=== PATIENT | male | born 1950 | race Caucasian/White ===

== ENCOUNTER → 2024-08-25 | Outpatient (CLI) | payer MEDICARE, BC, SELFPAY ==
--- NOTE | 2024-08-25 09:47 | XR_ITS ---
Examination: Knee, right , 3 views Technique: Knee AP, lateral, oblique 3 views Date and time of exam: August 25, 2024 at 10:00 AM INDICATIONS: Right knee pain 5 years getting worse FINDINGS: Moderate to advanced tricompartment osteoarthritis, most severe medial joint space No fracture Small knee effusion IMPRESSION: Moderate to advanced tricompartment osteophytes arthritis
[2024-08-25 10:38] LABS: Basophils # (Auto) 0.1 Thou/mm3 (0.0-0.2); Basophils % (Auto) 1 % (0-2.5); Eosinophils # (Auto) 0.7 Thou/mm3 (0.0-0.5); Eosinophils % (Auto) 12 % (0-10); Hematocrit 46.7 % (41.0-53.0); Immature Granulocytes % (Auto) 0 % (0-0); Immature Granulocytes Auto 0.02 Thou/mm3 (0.00-0.00); Lymphocytes # (Auto) 1.2 Thou/mm3 (1.0-4.8); Lymphocytes % (Auto) 19 % (10-50); Mean Corpuscular HGB Conc 34.3 g/dl (31.0-37.0); Mean Corpuscular Hemoglobin 32.3 pg (25.0-35.0); Mean Corpuscular Volume 94 fL (80-100); Monocytes # (Auto) 0.5 Thou/mm3 (0.0-0.8); Monocytes % (Auto) 7 % (0-12); Neutrophils # (Auto) 3.9 Thou/mm3 (1.8-7.7); Neutrophils % (Auto) 60 % (37-80); Nucleated Red Blood Cell % 0 /100 WBC (0); Platelet Count 184 Thou/mm3 (140-440); RDW Standard Deviation 43.9 fL (35.1-43.9); Red Blood Count 4.95 Miln/mm3 (4.50-5.90); White Blood Count 6.4 Thou/mm3 (3.8-10.6)
[2024-08-25 10:50] LABS: Glucose Estimated Average 148 mg/dL (80-131); Hemoglobin A1C 6.8 % Hgb (4.8-6.0)
[2024-08-25 10:58] LABS: Prostate Specific Antigen 3.08 ng/mL (0-4.00)
[2024-08-25 11:05] LABS: Vitamin D 25 Hydroxy Total 55.4 ng/mL (7.3-40.2)
[2024-08-25 11:09] LABS: Alanine Aminotransferase 9 U/L (10-49); Albumin, Serum 4.5 gm/dL (3.4-4.8); Alkaline Phosphatase 85 U/L (46-116); Anion Gap 5 (7-16); Aspartate Amino Transferase 11 U/L (0-34); BUN/Creatinine Ratio 21 Ratio (12-20); Bilirubin,Total 0.9 mg/dL (0.3-1.2); Blood Urea Nitrogen 29 mg/dL (9-23); Calcium 9.5 mg/dL (8.3-10.6); Calcium (Corrected) 9.5 mg/dL (8.5-10.1); Carbon Dioxide 29.2 mMol/L (20.0-31.0); Cardiac Risk Estimate 4.5 RATIO (4.0-6.7); Chloride 108 mMol/L (98-107); Cholesterol 122 mg/dL (132-200); Creatinine (Component) 1.4 mg/dL (0.6-1.3); Free T4 (Free Thyroxine) 1.33 ng/dL (0.89-1.76); Globulin 2.2 gm/dL (2.3-3.5); Glucose 126 mg/dL (74-106); HDL Cholesterol 27 mg/dL (40-60); LDL Cholesterol,Calculated 65 mg/dL (0-130); Osmolality,Calculated 290 (275-295); Sodium 142 mMol/L (136-145); Thyroid Stimulating Hormone 1.42 uIU/mL (0.55-4.78); Total Protein 6.7 gm/dL (5.7-8.2); Triglycerides 148 mg/dL (30-150); eGFR 52 See Note
== END | disposition home or self-care (01) ==
LOC: COPL 09:33
PROVIDERS: PCP Internal Medicine; Referring Provider Internal Medicine; Visit Provider Internal Medicine
DX: E03.9 Hypothyroidism, unspecified (principal); E11.9 Type 2 diabetes mellitus without complications; E55.9 Vitamin D deficiency, unspecified; I11.0 Hypertensive heart disease with heart failure; M25.561 Pain in right knee; N40.1 Benign prostatic hyperplasia with lower urinary tract symptoms
CPT/HCPCS: 36415; 73562; 80053; 80061; 82306; 83036; 84153; 84439; 84443; 85025

== ENCOUNTER 2024-10-23 09:55 | Outpatient (AMB) | payer MEDICARE, BC, SELFPAY ==
[2024-10-23 10:03] VITALS: BP 135/94; PULSE 74; RESP 18; TEMP 36.2; O2SAT 95; BMI 35.7
--- NOTE | 2024-10-23 10:03 | PD.GSCLVISIT ---
Vital Signs - [facility] 10/23/24 10:03 Height 1.88 m Height Method Stated Weight 126.24 kg Weight Measurement Method Standing Scale BMI 35.7 BP 135/94 H Blood Pressure Source Automatic Cuff Blood Pressure Location Left Upper Arm Position Sitting Respiration 18 Pulse 74 Pulse Source Monitor Temp 97.2 F Temp Source Temporal Artery Scan Pulse Oximetry (%) 95 Oxygen Delivery Method Room Air Med/Allergies Allergies & Medications Allergies ketorolac (From Toradol) Allergy (Verified 10/23/24 10:03) Rash Medication Reconciliation atorvastatin 20 mg tablet 20 mg PO QPM #30 tabs 09/17/21 [Rx Confirmed 10/23/24] lisinopril 10 mg tablet 10 mg PO QDAY #30 tabs 09/17/21 [Rx Confirmed 10/23/24] apixaban 5 mg tablet (Eliquis) 5 mg PO BID 10/23/24 [History Confirmed 10/23/24] chlorthalidone 25 mg tablet 25 mg PO Q OTHER DAY 10/23/24 [History Confirmed 10/23/24] linaclotide 145 mcg capsule (Linzess) 145 mcg PO QDAY #30 caps 10/23/24 [Rx] pantoprazole 40 mg tablet,delayed release 40 mg PO QDAY 10/23/24 [History Confirmed 10/23/24] spironolactone 25 mg tablet 25 mg PO QDAY 10/23/24 [History Confirmed 10/23/24] MA Intake Visit Data Collection New Patient or Established: New Patient (never been to [facility]) Reason for Visit:: CONSTIPATED/HEMORRHOID Pain Present Currently: No PCP or OBGYN visit in last 3 months: Yes Smoking Status Smoking Status: Former smoker Years smoked: 60 (SMOKES ADAM) Immunization / Flu Flu Vaccine in the Last 12 Months: Yes Flu Vaccine Exclusion Criteria: Already Received Past Medical History Past Medical History NEUROLOGIC: Negative Neurological Disorders or Seizures CARDIAC: Positive Cardiac Arrhythmia, Aneurysm (aortic aneurysm) and Hypertension; Negative Congestive Heart Failure RESPIRATORY: Positive Chronic Obstructive Pulmonary Disease (COPD) GASTROINTESTINAL: Positive Gastrointestinal Disorders GENITOURINARY: Negative Renal Disease MUSCULOSKELETAL: Positive Arthritis ENDOCRINE: Negative Diabetes Mellitus Type 1 or Diabetes Mellitus Type 2 OTHER HISTORY: Positive Chicken Pox; Negative Blood Transfusions or Anesthesia Reactions Surgical History SURGICAL: Negative Joint Replacement Social History SMOKING STATUS: Smoking status: Former smoker SECOND HAND EXPOSURE: second hand exposure: No ALCOHOL: Alcohol Intake: Former HOUSING: Housing: House LIVES WITH: Lives With: Spouse HPI HPI Narrative 74M with HTN, atrial fibrillation on eliquis, HLD and renal disease who self-referred for constipation. 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 Pt reports he drinks prune juice daily and uses over the counter medications such as Mag citrate, and has a BM almost daily but feels the stool is dry and he does have to strain. Pt notes pain with defecation but denies any bleeding or other signs of hemorrhoids. He has not yet tried any prescription remedy for constipation and he has been advised not to drink too much water daily. Pt has not yet tried sitz baths for the pain but overall states the pain is manageable ROS Review of Systems Systems Reviewed: All systems reviewed, normal except as documented Objective/Exam General General Appearance: alert, cooperative and well groomed Resp Respiratory exam: Absent respiratory distress Assessment & Plan Diagnosis / Problem List (1) Constipation: Assessment & Plan: 74M with HTN, afib on eliquis and HLD, who is up to date on his colonoscopy (next due in 2026 due to TVA seen in 2023) presenting with chronic constipation. As pt is unable to drink copious water due to his comorbid conditions I offered linzess as a prescription option, however pt understands that cost may be prohibitive. As he describes symptoms of an anal fissure I also offered to examine and prescribe a compound cream but pt prefers to hold off as he states the pain is manageable Plan: Will follow up in 2 mos Advanced Care Planning Advance care planning discussed with:: patient Office Procedures GNS Level of Care Nursing/Assessment Patient Status: Initial/New Patient Nursing Assessment/Reassesment: Medication Reconciliation, Update PMH in EMR and Vital Signs Coordination of Care: Complex Care and Chronic Disease 1-5, Consent,records obtained, informed consent, Education Simp Pt/Fam, 1 Ins Authorization, Results/Orders obtained and Staff clarify orders New Patient Charge New Patient Point Assignment: 1104 New Patient Point Charge: CUSTOMER ASSISTANCE ASSOCIATE Level 3 (0533-2510) Patient Portal Questionaires Social History Living Situation History Housing: House Tobacco History Smoking Status: Former smoker Second Hand Smoke Exposure: No Alcohol History Alcohol Intake: Former Review of Systems Report any current symptoms Only answer those that you have currently: Past Medical History Past Medical History Have you ever been diagnosed with any of the following: Neurological Problems Seizures: No Cardiology Problems Cardiac Arrhythmia: Yes Aneurysm: Yes (aortic aneurysm) Congestive Heart Failure: No Hypertension: Yes Respiratory Problems Chronic Obstructive Pulmonary Disease (COPD): Yes Genital/Urinary Problems Renal Disease: No Musculoskeletal Problems Arthritis: Yes Endocrine Problems Diabetes Mellitus Type 1: No Diabetes Mellitus Type 2: No Other Problems Blood Transfusions: No Anesthesia Reactions: No Chicken Pox: Yes
== END 2024-10-23 10:21 | disposition home or self-care (01) ==
LOC: HODSRG 09:55
PROVIDERS: PCP Internal Medicine; Referring Provider Internal Medicine; Supervising Provider Surgery; Visit Provider Surgery
DX: K59.00 Constipation, unspecified (principal); I10 Essential (primary) hypertension; J44.9 Chronic obstructive pulmonary disease, unspecified
CPT/HCPCS: 99203; G0463

== ENCOUNTER 2024-10-24 08:41 | Outpatient (AMB) | payer MEDICARE, BC, SELFPAY ==
[2024-10-24 09:14] VITALS: BP 129/90; PULSE 78; RESP 19; TEMP 36.8; O2SAT 93; BMI 35.6
--- NOTE | 2024-10-24 09:14 | PD.ORTHCLVIS ---
Vital signs 10/24/24 09:14 Height 1.88 m Height Method Stated Weight 126.212 kg Weight Measurement Method Standing Scale BMI 35.6 BP 129/90 H Blood Pressure Source Automatic Cuff Blood Pressure Location Left Upper Arm Position Sitting Respiration 19 Pulse 78 Pulse Source Monitor Temp 98.2 F Temp Source Temporal Artery Scan Pulse Oximetry (%) 93 L Oxygen Delivery Method Room Air Med/Allergies Allergies & Medications Allergies ketorolac (From Toradol) Allergy (Verified 10/24/24 09:15) Rash Medication Reconciliation atorvastatin 20 mg tablet 20 mg PO QPM #30 tabs 09/17/21 [Rx Confirmed 10/24/24] lisinopril 10 mg tablet 10 mg PO QDAY #30 tabs 09/17/21 [Rx Confirmed 10/24/24] apixaban 5 mg tablet (Eliquis) 5 mg PO BID 10/23/24 [History Confirmed 10/24/24] chlorthalidone 25 mg tablet 25 mg PO Q OTHER DAY 10/23/24 [History Confirmed 10/24/24] linaclotide 145 mcg capsule (Linzess) 145 mcg PO QDAY #30 caps 10/23/24 [Rx Confirmed 10/24/24] pantoprazole 40 mg tablet,delayed release 40 mg PO QDAY 10/23/24 [History Confirmed 10/24/24] spironolactone 25 mg tablet 25 mg PO QDAY 10/23/24 [History Confirmed 10/24/24] Exam Exam Patient is in no acute distress and is cooperative with the examination today. Breathing is nonlabored. In no respiratory distress. Bilateral extremities were evaluated and demonstrates sensation intact to light touch. Palpable pedal pulses are present. No significant edema is present. Bilateral hips were examined. The patient has no pain with log roll of the hips. Internal rotation to 30 degrees and external rotation to 30 degrees is painless. Negative FADIR. The left knee was examined. The left knee is in varus alignment. Range of motion from 0-115 degrees. Knee is stable to varus and valgus as well as AP translation with <5mm. Patient has a negative McMurrays. There is no pain with patellofemoral compression and no crepitus noted. The knee is tender to palpation medially. The right knee was also examined. The right knee is in varus alignment. Range of motion from 0-120 degrees. Knee is stable to varus and valgus as well as AP translation with <5mm. Patient has a negative McMurrays. There is no pain with patellofemoral compression and no crepitus noted. The knee is tender to palpation medially. Nonweightbearing films of the right knee demonstrate significant obliteration of the medial and lateral joint space Assessment and Plan Problem List (1) Degenerative arthritis of knee, bilateral: Status: Acute Plan: Patient is a pleasant 74-year-old male with bilateral knee arthritis of significant severity. I would like to get weightbearing x-rays. We likely do injections and conservative treatment. We will likely talk about surgery and if he can get cleared medically but he has a lot of fun requiring medical issues right now Advanced Care Planning Discussion Advance care planning discussed with:: patient Office Procedures GNS Level of Care Nursing/Assessment Patient Status: Initial/New Patient Nursing Assessment/Reassesment: Medication Reconciliation, Update PMH in EMR and Vital Signs Coordination of Care: Complex Care and Chronic Disease 1-5, Education Complex Pt/Fam, Consent,records obtained, informed consent, 1 Ins Authorization, Lab and Imaging orders, Results/Orders obtained and Staff clarify orders New Patient Charge New Patient Point Assignment: 1124 New Patient Point Charge: REGISTERED VETERINARY TECHNICIAN Level 4 (8159-9122) Established Patient Charge Established Patient Point Charge: EP Level 3 (80-115) MA Intake Visit Data Collection New Patient or Established: Established Patient (seen at [facility] within 3 years) Reason for Visit:: RIGHT KNEE PAIN Seen by Clinical Staff ONLY (RN/MA): No 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: No PCP or OBGYN visit in last 3 months: Yes Hx Now: No Do You Feel Safe at Home: Yes Authorities Contacted: N/A Questionairres Past Medical History Past Medical History Have you ever been diagnosed with any of the following: Neurological Problems Seizures: No Cardiology Problems Cardiac Arrhythmia: Yes Aneurysm: Yes (aortic aneurysm) Congestive Heart Failure: No Hypertension: Yes Respiratory Problems Chronic Obstructive Pulmonary Disease (COPD): Yes 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 ) Smoking Exposure: No Tobacco Use: No Genital/Urinary Problems Renal Disease: No Musculoskeletal Problems Arthritis: Yes Endocrine Problems Diabetes Mellitus Type 1: No Diabetes Mellitus Type 2: No Other Problems Blood Transfusions: No Anesthesia Reactions: No Chicken Pox: Yes Subjective Visit Visit for: new patient and knee (RIGHT KNEE ) Immunization / Flu Flu Vaccine in the Last 12 Months: Yes Flu Vaccine Exclusion Criteria: Already Received History of Present Illness Chief complaint: Bilateral knee pain Zackery is a pleasant 74-year-old male with right greater than left knee pain. This been ongoing for many years. He reports that he has a lot of medical issues going on right now and that he has an acute kidney failure. 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 He is on 5 mg of Eliquis. He reports the right knee pain has been bothering him quite significantly. He has not had any conservative treatment Personal History Red flag PMH: none Pain Pain level (0-10): 0 (PATIENT STATES NO PAIN, IT'S MORE NUMBNESS ) Pain duration: 3 YEARS AGO, DUE TO A FALL Pain location: anterior Pain quality: tingling and other (specify) (SWELLING) Pain timing: increases with activity Associated signs & symptoms: numbness Ambulatory data Ambulatory device: none Walking distance (minutes): 1 Treatments Number of previous injections: 0 Number of Physical Therapy sessions: 0 Improvement with NSAIDS: n/a Review of Systems Review of Systems: All systems negative unless otherwise noted in HPI.
--- NOTE | 2024-10-24 09:27 | XR_ITS ---
Examination: Bilateral knees 2 views Right lateral knee left lateral knee 2 views Bilateral axial knees single view TECHNIQUE: Bilateral AP knees standing single view, bilateral PA knees standing single view flexion Standing right lateral knee left lateral knee 2 views Bilateral axial knees single view total 5 views Date and time: October 24, 2024 0942 hours INDICATIONS: Bilateral knee pain several months. FINDINGS: Severe narrowing medial joint space right knee, [id number] Moderate to advanced osteoarthritis right patellofemoral joint Advanced narrowing medial joint space left knee Moderate to advanced osteoarthritis left patellofemoral joint No fractures No patellar dislocation IMPRESSION: Severe narrowing medial joint space right knee Advanced narrowing medial joint space left knee Bilateral moderate to advanced osteoarthritis patellofemoral joints
== END 2024-10-24 09:36 | disposition home or self-care (01) ==
LOC: HODSRG 08:41
PROVIDERS: PCP Internal Medicine; Referring Provider Internal Medicine; Supervising Provider Orthopaedic Surgery Adult Reconstructive Orthopaedic Surgery; Visit Provider Orthopaedic Surgery Adult Reconstructive Orthopaedic Surgery
DX: M17.0 Bilateral primary osteoarthritis of knee (principal); M25.562 Pain in left knee; M25.561 Pain in right knee; I48.91 Unspecified atrial fibrillation; I10 Essential (primary) hypertension; J44.9 Chronic obstructive pulmonary disease, unspecified
CPT/HCPCS: 73564; 99204; 99213; G0463

== ENCOUNTER 2024-11-14 07:50 | Outpatient (AMB) | payer MEDICARE, BC, SELFPAY ==
--- NOTE | 2024-11-14 07:57 | ORTHONT_ITS ---
Vital signs 11/14/24 07:58 Height 1.88 m Height Method Stated Weight 126.637 kg Weight Measurement Method Standing Scale BMI 35.8 BP 162/124 H Blood Pressure Source Automatic Cuff Blood Pressure Location Right Upper Arm Position Sitting Respiration 19 Pulse 80 Pulse Source Monitor Temp 96.9 F Temp Source Temporal Artery Scan Oxygen Delivery Method Room Air Med/Allergies Allergies & Medications Allergies ketorolac (From Toradol) Allergy (Verified 11/14/24 08:02) Rash Medication Reconciliation atorvastatin 20 mg tablet 20 mg PO QPM #30 tabs 09/17/21 [Rx Confirmed 11/14/24] lisinopril 10 mg tablet 10 mg PO QDAY #30 tabs 09/17/21 [Rx Confirmed 11/14/24] apixaban 5 mg tablet (Eliquis) 5 mg PO BID 10/23/24 [History Confirmed 11/14/24] chlorthalidone 25 mg tablet 25 mg PO Q OTHER DAY 10/23/24 [History Confirmed 11/14/24] linaclotide 145 mcg capsule (Linzess) 145 mcg PO QDAY #30 caps 10/23/24 [Rx Confirmed 11/14/24] pantoprazole 40 mg tablet,delayed release 40 mg PO QDAY 10/23/24 [History Confirmed 11/14/24] spironolactone 25 mg tablet 25 mg PO QDAY 10/23/24 [History Confirmed 11/14/24] Exam Exam Patient is in no acute distress and is cooperative with the examination today. Breathing is nonlabored. In no respiratory distress. Bilateral extremities were evaluated and demonstrates sensation intact to light touch. Palpable pedal pulses are present. No significant edema is present. Bilateral hips were examined. The patient has no pain with log roll of the hips. Internal rotation to 30 degrees and external rotation to 30 degrees is painless. Negative FADIR. The left knee was examined. The left knee is in varus alignment. Range of motion from 0-115 degrees. Knee is stable to varus and valgus as well as AP translation with <5mm. Patient has a negative McMurrays. There is no pain with patellofemoral compression and no crepitus noted. The knee is tender to palpation medially. The right knee was also examined. The right knee is in varus alignment. Range of motion from 0-120 degrees. Knee is stable to varus and valgus as well as AP translation with <5mm. Patient has a negative McMurrays. There is no pain with patellofemoral compression and no crepitus noted. The knee is tender to palpation medially. Nonweightbearing films of the right knee demonstrate significant obliteration of the medial and lateral joint space Assessment and Plan Problem List (1) Degenerative arthritis of knee, bilateral: Status: Acute Plan: Patient is a pleasant 74-year-old male with bilateral knee arthritis of significant severity. We likely do injections and conservative treatment. We will likely talk about surgery and if he can get cleared medically Recommend knee cortisone injections as patient would like to proceed with conservative treatment at this time. The risks and benefits of the procedure were reviewed with the patient and patient gave verbal consent to continue with the procedure. Procedure: performed by Dr. Iqbal Using sterile technique the Bilateral knees were thoroughly prepped with alcohol, and approximately 1 cc of Kenalog 40 mg/mL and 4 cc of 1% lidocaine was injected into each knee without resistance into the medial tibial femoral joint space. The patient tolerated the procedure. Advanced Care Planning Discussion Advance care planning discussed with:: patient Office Procedures GNS Level of Care Nursing/Assessment Patient Status: Established Patient Nursing Assessment/Reassesment: Medication Reconciliation, Update PMH in EMR and Vital Signs Coordination of Care: Complex Care and Chronic Disease 1-5, Education Complex Pt/Fam, Consent,records obtained, informed consent, Results/Orders obtained and Staff clarify orders Established Patient Charge Established Patient Point Assignment: 95 Established Patient Point Charge: EP Level 3 (80-115) Surgical Proc/IM SQ injection Major Surgical Procedure: Yes (bilateral knee) Medication Given Medication Given Medication Given: Yes Documented Dose Given: 8 Route: Infiitration Medication Given Medication Given Medication Given: Yes Documented Dose Given: 2 Route: Infiitration Office Meds Xylocaine 10 mg/mL (1 %) injection solution Performing Provider: Joni Iqbal MD Performing Location: [facility] Administered by: Joni Iqbal MD on 11/14/24 08:33 Dose Route Admin Location Dispensed Lot Number Expiration Date [facility] Sql [employer] 40 mL Infiltration 40 mL [id number] FRESEN S KABI triamcinolone acetonide 40 mg/mL suspension for injection Performing Provider: Joni Iqbal MD Performing Location: [facility] Administered by: Joni Iqbal MD on 11/14/24 08:33 Dose Route Admin Location Dispensed Lot Number Expiration Date [facility] [employer] 80 mg intra-articular 2 mL [id number] ALFREDO PEÑA MA Intake Visit Data Collection New Patient or Established: Established Patient (seen at [facility] within 3 years) Reason for Visit:: F/U XRAYS Seen by Clinical Staff ONLY (RN/MA): No Verbal consent obtained for Telemed visit?: No Construction Area Manager Required: No PCP or OBGYN visit in last 3 months: Yes Hx Now: No Do You Feel Safe at Home: Yes Authorities Contacted: N/A Questionairres Past Medical History Past Medical History Have you ever been diagnosed with any of the following: Neurological Problems Seizures: No Cardiology Problems Cardiac Arrhythmia: Yes Aneurysm: Yes (aortic aneurysm) Congestive Heart Failure: No Hypertension: Yes Respiratory Problems Chronic Obstructive Pulmonary Disease (COPD): Yes 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 ) Smoking Exposure: No Tobacco Use: No Stomache/Intestinal Problems Obesity: Yes Genital/Urinary Problems Renal Disease: No Musculoskeletal Problems Arthritis: Yes Endocrine Problems Diabetes Mellitus Type 1: No Diabetes Mellitus Type 2: No Other Problems Blood Transfusions: No Anesthesia Reactions: No Chicken Pox: Yes Subjective Visit Visit for: follow up visit, knee and x-rays Immunization / Flu Flu Vaccine in the Last 12 Months: No Flu Vaccine Exclusion Criteria: No Exclusion Criteria History of Present Illness Chief complaint: F/U ON XRAY Zackery is a pleasant 74-year-old male with right greater than left knee pain. This been ongoing for many years. He reports that he has a lot of medical issues going on right now and that he has an acute kidney failure. 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 He is on 5 mg of Eliquis. He reports the right knee pain has been bothering him quite significantly. He has not had any conservative treatment Personal History Occupation: RETIRED Red flag PMH: BMI BMI Counceling provided: Yes Pain Pain level (0-10): 0 Pain duration: ALL DAY Pain location: anterior Pain quality: tingling and other (specify) (SWELLING) Pain timing: increases with activity Associated signs & symptoms: numbness Ambulatory data Ambulatory device: none Walking distance (minutes): 1 Treatments Number of previous injections: 0 Improvement with previous injections: No Number of Physical Therapy sessions: 0 Improvement with PT: No Improvement with NSAIDS: no Review of Systems Review of Systems: All systems negative unless otherwise noted in HPI.
[2024-11-14 07:58] VITALS: BP 162/124; PULSE 80; RESP 19; TEMP 36.1; BMI 35.8
== END 2024-11-14 08:35 | disposition home or self-care (01) ==
LOC: HODSRG 07:50
PROVIDERS: PCP Internal Medicine; Referring Provider Internal Medicine; Supervising Provider Orthopaedic Surgery Adult Reconstructive Orthopaedic Surgery; Visit Provider Orthopaedic Surgery Adult Reconstructive Orthopaedic Surgery
DX: M17.0 Bilateral primary osteoarthritis of knee (principal); M25.562 Pain in left knee; M25.561 Pain in right knee; I48.91 Unspecified atrial fibrillation; N17.9 Acute kidney failure, unspecified; I10 Essential (primary) hypertension; J44.9 Chronic obstructive pulmonary disease, unspecified
CPT/HCPCS: 20610; 99213; J3301; J3490; G0463

== ENCOUNTER → 2024-11-15 | Outpatient (CLI) | payer MEDICARE, BC, SELFPAY ==
[2024-11-15 09:33] LABS: Albumin, Serum 4.2 gm/dL (3.4-4.8); Anion Gap 9 (7-16); BUN/Creatinine Ratio 10 Ratio (12-20); Blood Urea Nitrogen 13 mg/dL (9-23); Calcium 9.2 mg/dL (8.3-10.6); Calcium (Corrected) 9.2 mg/dL (8.5-10.1); Carbon Dioxide 28.5 mMol/L (20.0-31.0); Chloride 106 mMol/L (98-107); Creatinine (Component) 1.3 mg/dL (0.6-1.3); Glucose 130 mg/dL (74-106); Osmolality,Calculated 287 (275-295); Phosphorous 2.8 mg/dL (2.4-5.1); Potassium 4.1 mMol/L (3.4-5.1); Sodium 143 mMol/L (136-145); eGFR 57 See Note
== END | disposition home or self-care (01) ==
LOC: COPL 08:07
PROVIDERS: PCP Internal Medicine; Referring Provider Internal Medicine Cardiovascular Disease; Visit Provider Internal Medicine Cardiovascular Disease
DX: I48.21 Permanent atrial fibrillation (principal)
CPT/HCPCS: 36415; 80069

== ENCOUNTER 2025-02-20 07:59 | Outpatient (AMB) | payer MEDICARE, BC, SELFPAY ==
--- NOTE | 2025-02-20 08:09 | ORTHONT_ITS ---
Vital signs 02/20/25 08:10 Height 1.88 m Height Method Measured Weight 126.609 kg Weight Measurement Method Standing Scale BMI 35.8 BP 173/112 H Blood Pressure Source Automatic Cuff Blood Pressure Location Left Upper Arm Position Sitting Respiration 18 Pulse 64 Pulse Source Monitor Temp 97.2 F Temp Source Temporal Artery Scan Pulse Oximetry (%) 94 L Oxygen Delivery Method Room Air Med/Allergies Allergies & Medications Allergies ketorolac (From Toradol) Allergy (Verified 02/20/25 08:11) Rash Medication Reconciliation atorvastatin 20 mg tablet 20 mg PO QPM #30 tabs 09/17/21 [Rx Confirmed 02/20/25] lisinopril 10 mg tablet 10 mg PO QDAY #30 tabs 09/17/21 [Rx Confirmed 02/20/25] apixaban 5 mg tablet (Eliquis) 5 mg PO BID 10/23/24 [History Confirmed 02/20/25] chlorthalidone 25 mg tablet 25 mg PO Q OTHER DAY 10/23/24 [History Confirmed 02/20/25] linaclotide 145 mcg capsule (Linzess) 145 mcg PO QDAY #30 caps 10/23/24 [Rx Confirmed 02/20/25] pantoprazole 40 mg tablet,delayed release 40 mg PO QDAY 10/23/24 [History Confirmed 02/20/25] spironolactone 25 mg tablet 25 mg PO QDAY 10/23/24 [History Confirmed 02/20/25] Exam Exam Patient is in no acute distress and is cooperative with the examination today. Breathing is nonlabored. In no respiratory distress. Bilateral extremities were evaluated and demonstrates sensation intact to light touch. Palpable pedal pulses are present. No significant edema is present. Bilateral hips were examined. The patient has no pain with log roll of the hips. Internal rotation to 30 degrees and external rotation to 30 degrees is painless. Negative FADIR. The left knee was examined. The left knee is in varus alignment. Range of motion from 0-115 degrees. Knee is stable to varus and valgus as well as AP translation with <5mm. Patient has a negative McMurrays. There is no pain with patellofemoral compression and no crepitus noted. The knee is tender to palpation medially. The right knee was also examined. The right knee is in varus alignment. Range of motion from 0-120 degrees. Knee is stable to varus and valgus as well as AP translation with <5mm. Patient has a negative McMurrays. There is no pain with patellofemoral compression and no crepitus noted. The knee is tender to palpation medially. Nonweightbearing films of the right knee demonstrate significant obliteration of the medial and lateral joint space Assessment and Plan Problem List (1) Degenerative arthritis of knee, bilateral: Status: Acute Plan: Patient is a pleasant 74-year-old male with bilateral knee arthritis of significant severity. We likely do injections and conservative treatment. We will likely talk about surgery and if he can get cleared medically Recommend knee cortisone injection as patient would like to proceed with co nservative treatment at this time. The risks and benefits of the procedure were reviewed with the patient and patient gave verbal consent to continue with the procedure. Procedure: performed by Dr. Iqbal Using sterile technique the Right knee was thoroughly prepped with alcohol, and approximately 1 cc of Depo-Medrol 80mg/mL and 4 cc of 0.2% ropivacaine was injected without resistance into the medial tibial femoral joint space. The patient tolerated the procedure. Recommend knee cortisone injection as patient would like to proceed with conservative treatment at this time. The risks and benefits of the procedure were reviewed with the patient and patient gave verbal consent to continue with the procedure. Procedure: performed by Dr. Iqbal Using sterile technique the leftknee was thoroughly prepped with alcohol, and approximately 1 cc of Depo- Medrol 80mg/mL and 4 cc of 0.2% ropivacaine was injected without resistance into the medial tibial femoral joint space. The patient tolerated the procedure. Advanced Care Planning Discussion Advance care planning discussed with:: patient Office Procedures GNS Level of Care Nursing/Assessment Patient Status: Established Patient Nursing Assessment/Reassesment: Medication Reconciliation, Update PMH in EMR and Vital Signs Coordination of Care: Complex Care and Chronic Disease 1-5, Education Complex Pt/Fam, Consent,records obtained, informed consent, Results/Orders obtained and Staff clarify orders Established Patient Charge Established Patient Point Assignment: 95 Established Patient Point Charge: EP Level 3 (80-115) Surgical Proc/IM SQ injection Minor Surgical Procedure: Yes (BILATERAL KNEE INJECTIONS) Medication Given Medication Given Medication Given: Yes Documented Dose Given: 1 Route: Infiitration Medication Given Medication Given Medication Given: Yes Documented Dose Given: 1 Route: Infiitration Medication Given Medication Given Medication Given: Yes Documented Dose Given: 4 Route: Infiitration Medication Given Medication Given Medication Given: Yes Documented Dose Given: 4 Route: Infiitration Office Meds methylprednisolone acetate 80 mg/mL suspension for injection Performing Provider: Joni Iqbal MD Performing Location: [facility] Administered by: Joni Iqbal MD on 02/20/25 08:52 Dose Route Admin Location Dispensed Lot Number Expiration Date Pack age [facility] [employer] 80 mg intra-articular KNEE 1 mL [id number] 09/30/26 [address]-0 7 [id number] [employer] methylprednisolone acetate 80 mg/mL suspension for injection Performing Provider: Joni Iqbal MD [facility] Administered by: Joni Iqbal MD on 02/20/25 08:52 Dose Route Admin Location Dispensed Lot Number Expiration Date Pack age [facility] [employer] 80 mg intra-articular KNEE 1 mL [id number] 10/30/26 [address]-4 7 [id number] [employer] ropivacaine (PF) 2 mg/mL (0.2 %) injection solution Performing Provider: Joni Iqbal MD [facility] Administered by: Joni Iqbal MD on 02/20/25 08:52 Dose Route Admin Location Dispensed Lot Number Expiration Date Pack age [facility] [employer] Abuse [employer] 20 mL Infiltration KNEE 20 mL [id number] 06/02/27 52624-812-87 4306 [id number] [employer] ropivacaine (PF) 2 mg/mL (0.2 %) injection solution Performing Provider: Joni Iqbal MD [facility] Administered by: Joni Iqbal MD on 02/20/25 08:52 Dose Route Admin Location Dispensed Lot Number Expiration Date Pack age [facility] [employer] 20 mL Infiltration KNEE 20 mL [id number] 06/02/27 14600-494-76 [phone] [id number] [facility] Intake Visit Data Collection New Patient or Established: Established Patient (seen at [facility] within 3 years) Reason for Visit:: F/U BILATERAL KNEE INJECTION Seen by Clinical Staff ONLY (RN/MA): No Verbal consent obtained for Telemed visit?: No Domestic 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 Required: No PCP or OBGYN visit in last 3 months: Yes Hx Now: No Do You Feel Safe at Home: Yes Authorities Contacted: N/A Questionairres Past Medical History Past Medical History Have you ever been diagnosed with any of the following: Neurological Problems Seizures: No Cardiology Problems Cardiac Arrhythmia: Yes Aneurysm: Yes (aortic aneurysm) Congestive Heart Failure: No Hypertension: Yes Respiratory Problems Chronic Obstructive Pulmonary Disease (COPD): Yes 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 ) Smoking Cessation Counseling: No Smoking Exposure: No Tobacco Use: No Stomache/Intestinal Problems Obesity: Yes Genital/Urinary Problems Renal Disease: No Musculoskeletal Problems Arthritis: Yes Endocrine Problems Diabetes Mellitus Type 1: No Diabetes Mellitus Type 2: No Other Problems Blood Transfusions: No Anesthesia Reactions: No Chicken Pox: Yes Subjective Visit Visit for: follow up visit, knee and injections Immunization / Flu Flu Vaccine in the Last 12 Months: No Flu Vaccine Exclusion Criteria: No Exclusion Criteria History of Present Illness Chief complaint: F/U BILATERAL KNEE INJECTIONS Zackery is a pleasant 74-year-old male with right greater than left knee pain. This been ongoing for many years. He reports that he has a lot of medical issues going on right now and that he has an acute kidney failure. 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 He is on 5 mg of Eliquis. He reports the right knee pain has been bothering him quite significantly. He did well with injections and would like a new injection today Personal History Occupation: RETIRED Red flag PMH: BMI BMI Counceling provided: Yes Pain Pain level (0-10): 0 Pain duration: ALL DAY Pain location: anterior Pain quality: tingling and other (specify) (SWELLING) Pain timing: increases with activity Associated signs & symptoms: numbness Ambulatory data Ambulatory device: none Walking distance (minutes): 1 Treatments Number of previous injections: 2 Improvement with previous injections: Yes Number of Physical Therapy sessions: 0 Improvement with PT: No Improvement with NSAIDS: no Review of Systems Review of Systems: All systems negative unless otherwise noted in HPI.
[2025-02-20 08:10] VITALS: BP 173/112; PULSE 64; RESP 18; TEMP 36.2; O2SAT 94; BMI 35.8
== END 2025-02-20 08:28 | disposition home or self-care (01) ==
LOC: HODSRG 07:59
PROVIDERS: PCP Internal Medicine; Referring Provider Internal Medicine; Supervising Provider Orthopaedic Surgery Adult Reconstructive Orthopaedic Surgery; Visit Provider Orthopaedic Surgery Adult Reconstructive Orthopaedic Surgery
DX: M25.562 Pain in left knee (principal); M25.561 Pain in right knee; M17.0 Bilateral primary osteoarthritis of knee; I10 Essential (primary) hypertension; E66.9 Obesity, unspecified; Z68.35 Body mass index [BMI] 35.0-35.9, adult; N17.9 Acute kidney failure, unspecified; I48.91 Unspecified atrial fibrillation
CPT/HCPCS: 20610; 99213; J1010; J2795; G0463

== ENCOUNTER → 2025-03-14 | Outpatient (CLI) | payer MEDICARE, BC, SELFPAY ==
[2025-03-14 15:43] LABS: Albumin, Serum 4.5 gm/dL (3.4-4.8); Anion Gap 7 (7-16); BUN/Creatinine Ratio 12 Ratio (12-20); Blood Urea Nitrogen 13 mg/dL (9-23); Calcium 9.8 mg/dL (8.3-10.6); Calcium (Corrected) 9.8 mg/dL (8.5-10.1); Carbon Dioxide 30.5 mMol/L (20.0-31.0); Chloride 105 mMol/L (98-107); Creatinine (Component) 1.1 mg/dL (0.6-1.3); Glucose 145 mg/dL (74-106); Osmolality,Calculated 286 (275-295); Phosphorous 3.0 mg/dL (2.4-5.1); Potassium 4.1 mMol/L (3.4-5.1); Sodium 142 mMol/L (136-145); eGFR > 60 See Note
== END | disposition home or self-care (01) ==
LOC: COPL 14:42
PROVIDERS: PCP Internal Medicine; Referring Provider Internal Medicine Cardiovascular Disease; Visit Provider Internal Medicine Cardiovascular Disease
DX: I71.40 Abdominal aortic aneurysm, without rupture, unspecified (principal)
CPT/HCPCS: 36415; 80069

== ENCOUNTER → 2025-03-21 | Outpatient (CLI) | payer MEDICARE, BC, SELFPAY ==
[2025-03-21 09:52] LABS: Collection Type, Urine Clean Catch; Squamous Epithelial Cell,Urine 0 /hpf (0-5)
[2025-03-21 10:18] LABS: Basophils # (Auto) 0.0 Thou/mm3 (0.0-0.2); Basophils % (Auto) 1 % (0-2.5); Eosinophils # (Auto) 0.3 Thou/mm3 (0.0-0.5); Eosinophils % (Auto) 4 % (0-10); Hematocrit 51.0 % (41.0-53.0); Hemoglobin 16.9 g/dL (13.5-16.0); Immature Granulocytes Auto 0.04 Thou/mm3 (0.00-0.00); Lymphocytes # (Auto) 1.1 Thou/mm3 (1.0-4.8); Lymphocytes % (Auto) 15 % (10-50); Mean Corpuscular HGB Conc 33.1 g/dl (31.0-37.0); Mean Corpuscular Hemoglobin 30.8 pg (25.0-35.0); Mean Corpuscular Volume 93 fL (80-100); Monocytes # (Auto) 0.6 Thou/mm3 (0.0-0.8); Monocytes % (Auto) 8 % (0-12); Neutrophils # (Auto) 5.4 Thou/mm3 (1.8-7.7); Neutrophils % (Auto) 72 % (37-80); Nucleated Red Blood Cell # 0.00 Thou/mm3 (0.00-0.00); Nucleated Red Blood Cell % 0 /100 WBC (0); Platelet Count 180 Thou/mm3 (140-440); RDW Standard Deviation 46.1 fL (35.1-43.9); Red Blood Count 5.48 Miln/mm3 (4.50-5.90); White Blood Count 7.5 Thou/mm3 (3.8-10.6)
[2025-03-21 10:22] LABS: Bilirubin,Urine Negative (Negative); Blood,Urine Negative (Negative); Clarity,Urine Clear (Clear/Hazy); Color,Urine Yellow (Lt Yel-Yel); Glucose, Urine Negative (Negative); Ketones,Urine Negative (Negative); Leukocyte Esterase,Urine Negative (Negative); Nitrite,Urine Negative (Negative); PH,Urine 5.5 (5.0-7.0); Protein,Urine Negative (Neg - Trace); RBC,Urine 2 /hpf (0-3); Specific Gravity,Urine 1.020 (1.001-1.035); Urobilinogen,Urine Negative mg/dL (0.0-1.0); WBC,Urine 1 /hpf (0-5)
[2025-03-21 10:31] LABS: Parathyroid Hormone Intact 53.7 pg/ml (18.5-88.0)
[2025-03-21 10:33] LABS: Albumin, Serum 4.6 gm/dL (3.4-4.8); Anion Gap 8 (7-16); BUN/Creatinine Ratio 13 Ratio (12-20); Blood Urea Nitrogen 15 mg/dL (9-23); Calcium 9.3 mg/dL (8.3-10.6); Calcium (Corrected) 9.3 mg/dL (8.5-10.1); Carbon Dioxide 28.6 mMol/L (20.0-31.0); Chloride 105 mMol/L (98-107); Creatinine (Component) 1.2 mg/dL (0.6-1.3); Glucose 132 mg/dL (74-106); Osmolality,Calculated 285 (275-295); Phosphorous 3.5 mg/dL (2.4-5.1); Potassium 4.1 mMol/L (3.4-5.1); Sodium 142 mMol/L (136-145); eGFR > 60 See Note
[2025-03-21 10:38] LABS: Vitamin D 25 Hydroxy Total 38.9 ng/mL (7.3-40.2)
== END | disposition home or self-care (01) ==
PROVIDERS: PCP Internal Medicine Nephrology; Referring Provider Internal Medicine Nephrology; Visit Provider Internal Medicine Nephrology
DX: E55.9 Vitamin D deficiency, unspecified (principal)
CPT/HCPCS: 36415; 80069; 81001; 82306; 83970; 85025

== ENCOUNTER → 2025-04-06 | Outpatient (CLI) | payer MEDICARE, BC, SELFPAY ==
[2025-04-06 14:36] LABS: Albumin, Serum 4.6 gm/dL (3.4-4.8); Anion Gap 9 (7-16); BUN/Creatinine Ratio 12 Ratio (12-20); Blood Urea Nitrogen 17 mg/dL (9-23); Calcium 9.4 mg/dL (8.3-10.6); Calcium (Corrected) 9.4 mg/dL (8.5-10.1); Carbon Dioxide 30.9 mMol/L (20.0-31.0); Chloride 104 mMol/L (98-107); Creatinine (Component) 1.4 mg/dL (0.6-1.3); Glucose 124 mg/dL (74-106); Osmolality,Calculated 289 (275-295); Phosphorous 3.2 mg/dL (2.4-5.1); Potassium 4.4 mMol/L (3.4-5.1); Sodium 144 mMol/L (136-145); eGFR 52 See Note
== END | disposition home or self-care (01) ==
LOC: COPL 13:44
PROVIDERS: PCP Internal Medicine; Referring Provider Internal Medicine Cardiovascular Disease; Visit Provider Internal Medicine Cardiovascular Disease
DX: I48.21 Permanent atrial fibrillation (principal)
CPT/HCPCS: 36415; 80069

== ENCOUNTER → 2025-05-01 | Outpatient (CLI) | payer MEDICARE, BC, SELFPAY ==
--- NOTE | 2025-05-01 11:00 | XR_ITS ---
Study: Abdomen pelvis CT angiography. INDICATION: Aneurysm without rupture. TECHNIQUE: 3 mm slice thickness with 60 mL of Isovue-300. 3 mm sagittal and coronal reformats. 1362 images at 1142 hours 01 May 2025. Radiation dose 1173 mGy centimeters with dose reduction technique. FINDINGS: The patient was imaged from the right main pulmonary artery crossing to the subtrochanteric regions. The ascending aorta reaches 5.4 cm diameter and the descending aorta in the same slice which is 3.8 cm diameter. In the same slice, the right main pulmonary artery measures 2.7 cm diameter. The heart is normal in size and contour. There is subtle calcific plaque in the left anterior descending coronary artery. No pericardial effusion is noted. At the level of the upper aspect of the left atrium, the ascending aorta measures 6.2 x 5.1 cm diameter. In the same slice the descending aorta measures 4.0 cm. Subtle occasional calcifications are noted in the descending thoracic aortic wall. There is also a suggestion of a low-density widening of the aortic wall by what may be atheroma. The aorta measures 4.4 x 3.8 cm transaxially as it enters the abdomen. Trace plaque is noted. Between the origins of the celiac and superior mesenteric arteries the aorta measures 3.6 x 3.6 cm. Trace plaque is again noted. Immediately inferior from the origin of the left main renal artery, the aorta measures 2.8 cm diameter. For a distance of 4.3 cm below the renal artery origins, the aorta bulges slightly to 3.3 cm transverse by 3.6 cm AP with evidence for minimal associated plaque and atheromatous material in the media. There is no visible extravasation. With approach to the bifurcation, the aorta again reduces to 3.0 cm cyst AP oblique by 2.8 cm transverse oblique. The left and right common iliac arteries measure 1.5 and 1.6 cm diameter respectively. IMPRESSION: 1. Aneurysm of the ascending thoracic aorta. 2. Mild dilatation of the balance of the aorta without attaining aneurysmal proportions. 3. Mild atheromatous changes throughout the aorta extending into the common iliac arteries. 4. No extravasation.
== END | disposition home or self-care (01) ==
PROVIDERS: PCP Internal Medicine; Referring Provider Internal Medicine Cardiovascular Disease; Visit Provider Internal Medicine Cardiovascular Disease
DX: I71.21 Aneurysm of the ascending aorta, without rupture (principal); I70.0 Atherosclerosis of aorta
CPT/HCPCS: 74174; A4649; Q9967